=== PATIENT | female | born 1990 | race Hispanic/Latino ===

== ENCOUNTER 2017-07-28 02:06 | Emergency (ER) | payer BC, SELFPAY ==
[2017-07-28 03:48] LABS: Urine Blood TRACE (NEG); Urine Glucose NEGATIVE (NEG); Urine Protein NEGATIVE (NEG); Urine Specific Gravity <1.005 (1.005-1.030); Urine pH 5.5 (5.0-7.0)
--- NOTE | 2017-07-28 04:24 | EDPHYS ---
Physician Documentation [facility] Name: Fatoumata Archuleta Age: 27 yrs Sex: Female : 1990 Arrival Date: 07/28/2017 Time: 02:09 Bed 15 Private MD: ED Physician Sonny Calderón HPI: 07/28 03:27 This 27 yrs old Female presents to ER via Ambulatory with complaints of pkl Dizziness. 03:27 The patient presents with lightheadedness, feeling off balance. Onset: The pkl symptoms/episode began/occurred just prior to arrival, 1 hour(s) ago, Symptoms resolved after 30 secs.. The patient has experienced a previous episode, approximately 6 months ago. 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 - Social history:: Smoking status: Patient/guardian denies using tobacco. ROS: 03:27 Eyes: Negative for injury, pain, redness, and discharge, ENT: Negative for injury, pkl pain, and discharge, Neck: Negative for injury, pain, and swelling, Cardiovascular: Negative for chest pain, palpitations, and edema, Respiratory: Negative for shortness of breath, cough, wheezing, and pleuritic chest pain, Abdomen/GI: Negative for abdominal pain, nausea, vomiting, diarrhea, and constipation, Back: Negative for injury and pain, : Negative for injury, bleeding, discharge, and swelling, MS/Extremity: Negative for injury and deformity, Skin: Negative for injury, rash, and discoloration. 03:27 Neuro: Positive for dizziness. Exam: 03:27 Head/Face: Normocephalic, atraumatic. Eyes: Pupils equal round and reactive to light, pkl extra-ocular motions intact. Lids and lashes normal. Conjunctiva and sclera are non-icteric and not injected. Cornea within normal limits. Periorbital areas with no swelling, redness, or edema. ENT: Nares patent. No nasal discharge, no septal abnormalities noted. Tympanic membranes are normal and external auditory canals are clear. Oropharynx with no redness, swelling, or masses, exudates, or evidence of obstruction, uvula midline. Mucous membranes moist. Neck: Trachea midline, no thyromegaly or masses palpated, and no cervical lymphadenopathy. Supple, full range of motion without nuchal rigidity, or vertebral point tenderness. No Meningismus. Chest/axilla: Normal chest wall appearance and motion. Nontender with no deformity. No lesions are appreciated. Cardiovascular: Regular rate and rhythm with a normal S1 and S2. No gallops, murmurs, or rubs. Normal PMI, no JVD. No pulse deficits. Respiratory: Lungs have equal breath sounds bilaterally, clear to auscultation and percussion. No rales, rhonchi or wheezes noted. No increased work of breathing, no retractions or nasal flaring. Abdomen/GI: Soft, non-tender, with normal bowel sounds. No distension or tympany. No guarding or rebound. No evidence of tenderness throughout. Back: No spinal tenderness. No costovertebral tenderness. Full range of motion. Skin: Warm, dry with normal turgor. Normal color with no rashes, no lesions, and no evidence of cellulitis. MS/ Extremity: Pulses equal, no cyanosis. Neurovascular intact. Full, normal range of motion. 03:27 Neuro: Orientation: is normal, Mentation: is normal, Memory: is normal, Cranial nerves: grossly normal, Cerebellar function: normal finger to nose testing, heel to terrazas testing is normal, Motor: is normal, Sensation: is normal, Gait: is steady. Vital Signs: 02:19 BP 133 / 93; Pulse 82; Resp 16; Temp 98.1; Pulse Ox 100% on R/A; Weight 79.38 kg; aa1 Height 5 ft. 1 in. (154.94 cm); Pain 0/10; 04:57 BP 113 / 80; Pulse 73; Resp 16; Temp 98; Pulse Ox 100% on R/A; Pain 0/10; ak1 02:19 Body Mass Index 33.07 (79.38 kg, 154.94 cm) aa1 MDM: 02:51 Patient medically screened. pkl 04:23 Data reviewed: vital signs, nurses notes, radiologic studies, CT scan. pk 07/28 03:31 Order name: Urine Dipstick--Ancillary (enter results); Complete Time: 04:25 em1 07/28 02:59 Order name: CT Head Brain wo Cont pkl 07/28 03:00 Order name: Urine Dipstick-Ancillary (obtain specimen); Complete Time: 03:02 bs1 07/28 03:00 Order name: Urine Test (obtain specimen); Complete Time: 03:02 bs1 Administered Medications: No medications were administered Disposition: 07/28/17 04:24 Discharged to Home. Impression: Dizziness ( Resolved ). - Condition is Stable. - Prescriptions for Antivert 25 mg Oral Tablet - take 1 tablet by ORAL route every 8 hours As needed; 15 tablet. - Medication Reconciliation Form, Thank You Letter, Antibiotic Education, Prescription Opioid Use form. - Follow up: Ronal Hodgson MD; When: 2 - 3 days; Reason: Re-evaluation by your physician. - Problem is new. - Symptoms are resolved. Signatures: Dispatcher [employer] EDHanane Dillard RN RN aa1 Sonny Calderón MD MD pkl Yoon Keys RN RN ak1 Jannette Jonas RN RN bs1 Corrections: (The following items were deleted from the chart) 02:34 02:19 Allergies: Cefzil; aa1 bs1
--- NOTE | 2017-07-28 04:24 | ER ---
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 Reports aa1 this has happened in the past and had CT and neuro consult but reports everything was normal. Transition of care: patient was not received from another setting of care. Onset of symptoms was July 28, 2017. Initial Sepsis Screen: Does the patient meet any 2 criteria? No. Patient's initial sepsis screen is negative. Does the patient have a suspected source of infection? No. Patient's initial sepsis screen is negative. Care prior to arrival: None. 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 - Social history:: Smoking status: Patient/guardian denies using tobacco. Screenin:32 Abuse screen: Denies threats or abuse. Denies injuries from another. Nutritional bs1 screening: No deficits noted. Tuberculosis screening: No symptoms or risk factors identified. Fall Risk None identified. Assessment: 02:20 General: Appears in no apparent distress. uncomfortable, Behavior is cooperative, bs1 anxious. Pain: Denies pain. Neuro: Level of Consciousness is awake, alert, obeys commands, Oriented to person, place, time, situation, Appropriate for age Stock Raiser are equal bilaterally Moves all extremities. Facial symmetry appears normal, Pupils are PERRLA, Intact Reports dizziness, Denies blurred vision numbness headache. Cardiovascular: Denies chest pain, palpitations, shortness of breath, Heart tones S1 S2 present Capillary refill < 3 seconds Patient's skin is warm and dry. Respiratory: Airway is patent Trachea midline Respiratory effort is even, unlabored, Breath sounds are clear bilaterally. GI: Abdomen is round. : No deficits noted. No signs and/or symptoms were reported regarding the genitourinary system. EENT: No deficits noted. No signs and/or symptoms were reported regarding the EENT system. Derm: Skin is intact, Skin is pink, warm \T\ dry. Musculoskeletal: Circulation, motion, and sensation intact. Capillary refill < 3 seconds, Range of motion: intact in all extremities. 03:30 Reassessment: Patient appears in no apparent distress at this time. Patient and/or bs1 family updated on plan of care and expected duration. Pain level reassessed. Patient is alert, oriented x 3, equal unlabored respirations, skin warm/dry/pink. Patient states symptoms have improved. 04:45 Reassessment: Patient appears in no apparent distress at this time. No changes from bs1 previously documented assessment. No dizziness noted at this time. Vital Signs: 02:19 BP 133 / 93; Pulse 82; Resp 16; Temp 98.1; Pulse Ox 100% on R/A; Weight 79.38 kg; aa1 Height 5 ft. 1 in. (154.94 cm); Pain 0/10; 04:57 BP 113 / 80; Pulse 73; Resp 16; Temp 98; Pulse Ox 100% on R/A; Pain 0/10; ak1 02:19 Body Mass Index 33.07 (79.38 kg, 154.94 cm) aa1 ED Course: 02:09 Patient arrived in ED. al2 02:13 Jannette Jonas, RN is Primary Nurse. bs1 02:19 Triage completed. aa1 02:19 Arm band placed on right wrist. Patient placed in an exam room, on a stretcher. aa1 02:32 Patient has correct armband on for positive identification. Bed in low position. Call bs1 light in reach. Side rails up X 1. Pulse ox on. NIBP on. 02:34 No provider procedures requiring assistance completed. bs1 02:51 Sonny Calderón MD is Attending Physician. pkl 03:17 CT Head Brain wo Cont In Process Unspecified. EDMS 03:17 CT completed. Patient tolerated procedure well. Patient moved to CT via wheelchair. Patient moved back from CT. 04:23 Ronal Hodgson MD is Referral Physician. pkl 04:58 Patient did not have IV access during this emergency room visit. ak1 Administered Medications: No medications were administered Outcome: 04:24 Discharge ordered by MD. pkl 04:54 Discharged to home ambulatory, with significant other. bs1 04:54 Condition: stable 04:54 Discharge instructions given to patient, Instructed on discharge instructions, follow up and referral plans. Demonstrated understanding of instructions, follow-up care. 04:59 Patient left the ED. ak1 Signatures: Dispatcher [employer] EDAR Hanane Morrissey RN RN aa1 Sonny Calderón MD MD pkl Esau Loyd Amber RN RN ak1 Jannette Jonas RN RN bs1 Lori Ovalle2 Corrections: (The following items were deleted from the chart) 02:34 02:19 Allergies: Cefzil; aa1 bs1
--- NOTE | 2017-07-28 07:36 | RAD REPORT ---
EXAM DESCRIPTION: CT - Head Brain Wo Cont - 07/28/2017 5:17 am CLINICAL HISTORY: Weakness, dizziness A preliminary written report was provided at the time of the study, and the report was reviewed prio r to final dictation. COMPARISON: CT December 2016 TECHNIQUE: Axial 5 mm thick images of the head were obtained without IV contrast. All CT scans are performed using dose optimization technique as appropriate and may include automated exposure control or mA/KV adjustment according to patient size. FINDINGS: No intracranial hemorrhage, mass, edema or shift of mid-line structures. No acute infarcti on changes seen. No abnormal extra-axial fluid collections. Ventricles are normal. Mastoid air cells and visualized portions of the paranasal sinuses are clear. No acute bony findings. IMPRESSION: Negative non-contrast CT head examination. No significant change from comparison.
== END 2017-07-28 04:59 | disposition home or self-care (01) ==
LOC: ER 02:06
DX: R42 Dizziness and giddiness (principal)
CPT/HCPCS: 70450; 81003; 99284